=== PATIENT | male | born 1970 | race Asian ===

== ENCOUNTER 2020-09-11 22:04 | Inpatient (IN) | payer BC ==
[~2020-09-11] VITALS: Ht 182.9 cm; Wt 93.0 kg
--- NOTE | 2020-09-11 22:25 | NUR ---
PATIENT BIBSELF C/O MIDSTERNAL CHEST PAIN FOR THE PASSED 20 MINS YACHT CAPTAIN. PATIENT IS A/O X 4, RR EVEN AND UNLABORED, NO SIGNS OF SOB NOTED. PATIENT IS CONNECTED TO CULTURAL HISTORIAN AND POX.
[2020-09-11 22:47] LABS: BASOPHILS % (AUTO) 0.6 % (0.0-2.0); EOSINOPHILS % (AUTO) 2.9 % (0.0-6.0); HEMATOCRIT 42 % (39-51); HEMOGLOBIN 14.7 g/dL (13.5-17.5); LYMPHOCYTES # (AUTO) 3.5 K/uL (0.8-4.8); MEAN CORPUSCULAR HGB CONC 35 g/dl (31.0-36.0); MEAN CORPUSCULAR VOLUME 93 fL (80-96); MONOCYTES # (AUTO) 0.8 K/uL (0.1-1.30); MONOCYTES % (AUTO) 9.8 % (2.0-12.0); NEUTROPHILS % (AUTO) 46.7 % (43.0-81.0); PLATELET COUNT (AUTO) 280 K/uL (150-450); RED BLOOD CELL COUNT(AUTO) 4.53 MIL/uL (4.5-6.0); WHITE BLOOD COUNT (AUTO) 8.7 K/uL (4.3-11.0)
[2020-09-11 23:06] LABS: CALCIUM, SERUM 8.8 mg/dL (8.5-10.1); CARBON DIOXIDE 31 mmol/L (21-32); CHLORIDE 106 mmol/L (98-107); CREATININE 1.3 mg/dL (0.6-1.3); GLUCOSE 175 mg/dL (74-106); POTASSIUM 3.8 mmol/L (3.5-5.1); SODIUM SERUM 142 mmol/L (136-145); UREA NITROGEN, BLOOD 25 mg/dL (7-18)
--- NOTE | 2020-09-11 23:45 | NUR ---
COVID SWAB COLLECTED AND SENT TO LAB
[2020-09-12] VITALS (25 sets, daily range): BP systolic 111–127; BP diastolic 65–89
[2020-09-12] MEDS ORDERED: AMIODARONE 150 MG/3 ML VIAL IV ONE ×2 (00:08→00:30)
[2020-09-12] MEDS ORDERED: NITROGLYCERIN 0.4 MG/TAB BOTTLE ONE (00:23)
[2020-09-12] MEDS ORDERED: ENOXAPARIN SODIUM 100 MG/ML DISP.SYRIN SQ ONE (00:23)
[2020-09-12] MEDS ORDERED: ASPIRIN 81 MG TAB.CHEW ONE (00:26)
[2020-09-12] MEDS ORDERED: ASPIRIN 81 MG TAB.CHEW PO ONE (00:30)
[2020-09-12] MEDS ORDERED: NITROGLYCERIN 0.4 MG/TAB BOTTLE SL ONE (00:30)
[2020-09-12] MEDS ORDERED: ENOXAPARIN SODIUM 80 MG/0.8 ML DISP.SYRIN SQ ONE (00:30)
--- NOTE | 2020-09-12 00:37 | NUR ---
PATIENT GIVEN SECOND DOSE OF NITRO SL 0.4MG, BP: 136/89, HR 83
--- NOTE | 2020-09-12 02:08 | NUR ---
REPORT GIVEN TO LIDIA FLORES
--- NOTE | 2020-09-12 02:18 | NUR ---
PATIENT TRANSFERRED UNDER ACLS
--- NOTE | 2020-09-12 02:20 | NUR ---
RN ADMITTING NOTE PATIENT TRANSFERRED TO TELE RM 324-1. PATIENT IS A/O X 4. ABLE TO MAKE NEEDS KNOWN. PATIENT TOLERATES ROOM AIR, BREATHING EVEN AND UNLABORED WITH O2 SAT OF 97%. TELE MONITOR READS SINUS ARRHYTHMIA 65 WITH FIRST DEGREE AVB AND PVCS. PATIENT IS AMBULATORY WITH STEADY GAIT. PATIENT COMPLAINS ON CHEST PAIN 2/10 PAIN, HE WAS GIVEN 2 DOSES OF NITROSTAT 0.4 MG IN ER WHICH IMPROVED THE PAIN. PATIENT DOES NOT COMPLAIN OF ANY DIZZINESS, N/V. PATIENT'S SKIN IS INTACT. ORIENTED PATIENT TO THE ROOM, PRIMARY NURSE, AND WHEEL INSTALLER. RIGHT AC 20 G PATENT AND INTACT. BELONGINGS INVENTORIED. SAFETY MEASURES IN PLACE: BED IN LOCKED AND IN LOWEST POSITION, CALL LIGHT WITHIN REACH, SIDE RAILS UP. WILL MONITOR PATIENT CLOSELY.
[2020-09-12] MEDS ORDERED: IV D5/ 0.9% NACL 1,000 ML IV SCH (02:30)
[2020-09-12] MEDS ORDERED: ZOLPIDEM TARTRATE 5 MG TABLET PO PRN (02:30)
--- NOTE | 2020-09-12 07:01 | NUR ---
PATIENT COMPLAINING OF CHEST PAIN 4/10, SMOKY AND SHARP PAIN. PATIENT GIVEN 2L OF OXYGEN VIA NC, AND CALLED DR. RED FOR AN ORDER OF NITROSTAT O.4 MG PRN CHEST PAIN X3 5 MINS APART. TORB AND NEW ORDER CARRIED OUT.
[2020-09-12 07:16] LABS: BASOPHILS % (AUTO) 0.1 % (0.0-2.0); HEMATOCRIT 41 % (39-51); LYMPHOCYTES # (AUTO) 0.8 K/uL (0.8-4.8); MEAN CORPUSCULAR HGB CONC 35 g/dl (31.0-36.0); MEAN CORPUSCULAR VOLUME 92 fL (80-96); MONOCYTES # (AUTO) 0.7 K/uL (0.1-1.30); MONOCYTES % (AUTO) 5.4 % (2.0-12.0); NEUTROPHILS # (AUTO) 11.8 K/uL (1.8-8.9); NEUTROPHILS % (AUTO) 88.5 % (43.0-81.0); PLATELET COUNT (AUTO) 271 K/uL (150-450); WHITE BLOOD COUNT (AUTO) 13.4 K/uL (4.3-11.0)
--- NOTE | 2020-09-12 07:25 | NUR ---
RN CLOSING NOTE PATIENT IS STABLE AT THIS TIME. NITROSTAT GIVEN, CHEST PAIN IMPROVED AFTER ONE DOSE. TOLERATING 2 L OF OXYGEN SUPPLEMENTATION. ALL ORDERS CARRIED OUT, ALL NEEDS MET AND ATTENDED. PATIENT'S TELE READING IS SINUS SUDEEP 56 BP WITH PVC. SAFETY MEASURES MAINTAINED. ENDORSED TO DAY SHIFT NURSE FOR PAO.
[2020-09-12] MEDS ORDERED: NITROGLYCERIN 0.4 MG/TAB BOTTLE SL PRN (07:30)
[2020-09-12 07:39] LABS: CALCIUM, SERUM 8.7 mg/dL (8.5-10.1)
[2020-09-12 07:55] LABS: THYROID STIMULATING HORMONE 1.161 uIU/mL (0.358-3.74)
--- NOTE | 2020-09-12 07:58 | NUR ---
MUD CLEANER OPERATOR OPENING NOTES RECEIVED PATIENT IN BED, AWAKE, A/O X4. PATIENT ON ROOM AIR; BREATHING EVEN AND UNLABORED; NO SOB AT THIS TIME. TELE MONITOR WITH A READING OF SR 79 WITH ARRHYTHMIA. NO COMPLAINS OF PAIN AT THIS MOMENT. RAC IV ACCESS G #20 PRESENT AND INTACT INFUSING NS @ 75 MLS/HR. SAFETY PRECAUTIONS IN PLACE; BED IN LOW POSITION AND LOCKED, RAILS UP X2, CALL LIGHT WITHIN REACH. WILL CONTINUE TO MONITOR PATIENT.
[2020-09-12] MEDS: ASPIRIN EC 81 MG TABLET.DR PO SCH (08:20)
[2020-09-12 08:42] LABS: CHOLESTEROL 199 mg/dL (<200); HDL CHOLESTEROL 36 mg/dL (40-60); LDL 119 mg/dL (0-99); TRIGLYCERIDES 217 mg/dL (30-150)
--- NOTE | 2020-09-12 08:45 | NUR ---
REAL ESTATE SERVICES COORDINATOR NOTES LAB CALLED WITH A CRITICAL LAB RESULT FOR TROPONIN OF [phone] MD ON THE FLOOR (DR RED) AND MADE AWARE. MD SPOKE WITH THE PATIENT AND WILL ORDER ANGIOGRAM. PATIENT NPO WILL CONTINUE TO MONITOR
[2020-09-12] MEDS ORDERED: METOPROLOL TARTRATE 25 MG TABLET PO SCH (09:00)
[2020-09-12] MEDS: METOPROLOL TARTRATE 25 MG TABLET PO SCH ×2 (09:30→20:43)
[2020-09-12] MEDS: ENOXAPARIN SODIUM 100 MG/ML DISP.SYRIN SQ SCH ×2 (10:00→20:42)
[2020-09-12] MEDS: NITROGLYCERIN 30 GM TUBE TP SCH ×3 (11:18→17:14)
--- NOTE | 2020-09-12 11:52 | NUR ---
SUPERVISOR ROLLER PRINTINGFORESTRY SUPERVISOR NOTES PATIENT TRANSFERRED TO ICU FOR FURTHER MONITORING AND PROCEDURE. REPORT GIVEN TO RN.
--- NOTE | 2020-09-12 11:53 | NUR ---
RN NOTES RECEIVED PT FROM 3W , A/Ox4, ON TELE SB WITH OCCASIONAL PVC/ SINUS ARRHYTHMIA , HR IN 50'S , ON RA, NO SOB NOTED, O2 SAT WNL, PT STATE HIS CHEST PAIN IS 1-2 OUT OF 10, PT GOING TO TRUCK JUMPER TODAY PER DR GRANDA , D5NS AT 75CC/HR RUNNING , VIA R AC IV SITE, SR UP x3, CALL LIGHT WITHIN EASY REACH, BED LOCKED AND IN LOWEST POSITION, CONTINUE PAIN MANAGEMENT AND NOTIFY MD OF ANY SIGNIFICANT CHANGES.
[2020-09-12] MEDS ORDERED: ENOXAPARIN SODIUM 100 MG/ML DISP.SYRIN SQ SCH (12:00)
--- NOTE | 2020-09-12 12:24 | NUR ---
RN NOTES DR JESUS ALBERTO BAXTER REGARDING TROPONIN 18.897, CONTINUE TO MONITOR . NO NEW ORDER GIVEN .
[2020-09-12] MEDS ORDERED: IV NS 0.9% 1,000 ML ONE (13:40)
[2020-09-12] MEDS ORDERED: IODIXANOL 150 ML IV ONE (13:41)
[2020-09-12] MEDS ORDERED: LIDOCAINE HCL/MPF 1% 30 ML VIAL IJ ONE (13:41)
[2020-09-12] MEDS ORDERED: IV SET PRIMARY PUMP SET 1 EA INFUS.SET MC ONE (13:42)
[2020-09-12] MEDS ORDERED: NTG 50 MG/D5W250 ML BOTTL 250 ML IV PRN (14:00)
--- NOTE | 2020-09-12 14:00 | NUR ---
RN NOTES PT TO IT INSTRUCTOR AT THIS TIME.
[2020-09-12] MEDS ORDERED: NITROGLYCERIN IN 5 % DEXTROSE 250 ML IV ONE (14:23)
[2020-09-12] MEDS ORDERED: MIDAZOLAM HCL 2 MG/2ML VIAL ONE (14:29)
[2020-09-12] MEDS ORDERED: FENTANYL PF 100MCG/2ML AMPUL ONE (14:29)
[2020-09-12] MEDS ORDERED: HEPARIN SODIUM, PORCINE 1,000 UNIT/ML VIAL ONE (14:55)
[2020-09-12] MEDS ORDERED: HEPARIN SODIUM, PORCINE 5000 UNITS/1 ML VIAL ONE ×2 (14:55→15:23)
[2020-09-12] MEDS ORDERED: IODIXANOL 320MG/ML 50 ML IV ONE (14:57)
[2020-09-12] MEDS ORDERED: TIROFIBAN-0.9% SODIUM CHLORIDE 100 ML IV ONE (15:27)
[2020-09-12] MEDS ORDERED: SODIUM CHLORIDE IV PRN (16:00)
[2020-09-12] MEDS ORDERED: TIROFIBAN IV PRN (16:00)
[2020-09-12] MEDS ORDERED: ENOXAPARIN SODIUM 80 MG/0.8 ML DISP.SYRIN SQ SCH (16:00)
--- NOTE | 2020-09-12 16:20 | NUR ---
RN NOTES RECEIVED PT FROM SOIL ANALYST , PT IS A/Ox4, ON 2L O2 N/C , O2 SAT WNL, ON TELE SB HR IN 50'S, TR BAND COMPRESSION DEVICE ON AND ALIGNED WITH GREEN MARKER, BALLOON 14 INFLATED ON RIGHT WRIST , SITE CLEAN, DRY AND NO SIGN OF BLEEDING AND HEMATOMA NOTED , PT IS ABLE TO MOVE HIS FINGERS , DENIES ANY NUMBNESS AND TINGLING, STRONG POSITIVE RIGHT RADIAL PULSED NOTED ON PALPATION , SR UP x3 , CALL LIGHT WITHIN EASY REACH, BED LOCKED AND IN LOWEST POSITION, CONTINUE TO MONITOR.
--- NOTE | 2020-09-12 16:20 | NUR ---
RN NOTES AGGRASTAT RUNNING AT 16.5 CC/HR VIA LEFT AC IV SITE G 18, NO SIGN OF BLEEDING NOTED
[2020-09-12] MEDS: SODIUM CHLORIDE IV PRN (16:54)
[2020-09-12] MEDS: TIROFIBAN IV PRN (16:54)
[2020-09-12] MEDS: [UNRECOGNIZED DRUG - OTHER] IV PRN (16:54)
[2020-09-12] MEDS: IV NS 0.9% 1,000 ML IV SCH (18:08)
--- NOTE | 2020-09-12 18:20 | NUR ---
RN NOTES 6 CC OF 14CC AIR REMOVED FROM TR BAND , SMALL AMOUNT OF BLEEDING NOTED AT THE SITE, 2CC AIR PUSHED BACK IN , NO NUMBNESS AND TINGLING NOTED ON R HANDS FINGERS , PT RAHEL ANY CHEST PAIN, AGGRASTAT AT 16.5CC/HR RUNNING, NS AT 100CC/HR INFUSING, WILL ENDOSE TO ACCOUNTING SYSTEM EXPERT NURSE FOR CONTINUITY OF CARE .
--- NOTE | 2020-09-12 18:30 | NUR ---
RN NOTES SMALL AREA OF GRAYISH COLOR NOTED AT THE TR BAND SITE , AREA SOFT TO TOUCH , DR RAY NOTIFIED , CONTINUE TO MONITOR PER MD ORDER .
--- NOTE | 2020-09-12 19:35 | NUR ---
RN NOTES RECEIVED PATIENT AWAKE ALERT ORIENTED X 4 WATCHING TV ON BED. HAD CARDIAC CATH THIS AFTERNOON WITH TR BAND ON RIGHT HAND WITH 9 CC OF AIR LEFT, AND WILL CONTINUE TO REMOVE EVERY 15 MINS. UNTIL AIR COMPLETELY REMOVE. REMOVED 2 CC OF AIR AT THIS TIME. DENIES CHEST PAIN. WITH GOOD RADIAL PULSE. DENIES TINGLING OR NUMBNESS. GRAYISH COLOR ON THE SITE PRESENT MD MADE AWARE BY PREV. SHIFT. AND WILL CONTINUE TO MONITOR.
--- NOTE | 2020-09-12 19:45 | NUR ---
RN NOTES PATIENT ALSO RUNNING NS @ 100 ML/HR UNTIL 10 PM ONLY AND AGGRASTAT @ 16.5 ML/HR TFO. TR BAND ON RIGHT HAND CONTINUE TO MONITOR FOR SIGNIFICANT BLEEDING.
--- NOTE | 2020-09-12 21:00 | NUR ---
RN NOTES REMOVED TR BAND ON RIGHT HAND, NO BLEEDING AND COVERED WITH TRANSPARENT DRESSING . PT IS AWAKE DENIES CHEST PAIN, ABLE TO MOVE HIS FINGERS , DENIES ANY NUMBNESS AND TINGLING, WITH STRONG RIGHT RADIAL PULSE.
[2020-09-12] MEDS: ATORVASTATIN 40 MG TABLET PO SCH (21:02)
[2020-09-12] MEDS ORDERED: ATORVASTATIN 40 MG TABLET PO SCH (22:00)
[2020-09-13] VITALS (38 sets, daily range): BP systolic 104–133; BP diastolic 59–88
--- NOTE | 2020-09-13 | NUR ---
RN NOTES PATIENT ASLEEP AT THIS TIME SB ON MONITOR. NO SOB OR ACUTE RESPIRATORY DISTRESS ON ROOM AIR. SATURATION >92%, AFEBRILE. VSS. NO BLEEDING NOTED FROM RIGHT HAND FROM S/P TR BAND REMOVED. NO TINGLING OR NUMBNESS, SOFT TO TOUCH. NO SIGNIFICANT CHANGES NOTED.
[2020-09-13 05:30] LABS: BASOPHILS % (AUTO) 0.2 % (0.0-2.0); EOSINOPHILS % (AUTO) 0.2 % (0.0-6.0); HEMATOCRIT 39 % (39-51); HEMOGLOBIN 13.5 g/dL (13.5-17.5); LYMPHOCYTES # (AUTO) 2.4 K/uL (0.8-4.8); LYMPHOCYTES % (AUTO) 18.9 % (20.0-44.0); MEAN CORPUSCULAR HGB CONC 35 g/dl (31.0-36.0); MEAN CORPUSCULAR VOLUME 93 fL (80-96); MONOCYTES # (AUTO) 1.1 K/uL (0.1-1.30); MONOCYTES % (AUTO) 8.8 % (2.0-12.0); NEUTROPHILS # (AUTO) 9.3 K/uL (1.8-8.9); NEUTROPHILS % (AUTO) 71.9 % (43.0-81.0); PLATELET COUNT (AUTO) 246 K/uL (150-450); RED BLOOD CELL COUNT(AUTO) 4.18 MIL/uL (4.5-6.0)
[2020-09-13 05:31] LABS: CALCIUM, SERUM 8.3 mg/dL (8.5-10.1); MAGNESIUM 1.9 mg/dL (1.8-2.4); POTASSIUM 4.1 mmol/L (3.5-5.1)
--- NOTE | 2020-09-13 07:00 | NUR ---
RN NOTES RECEIVED PT ON BED,A/Ox4, ON RA, NO SOB NOTED, PT RAHEL CHEST PAIN ON TELE SR , HR IN 70'S , RAC IV SITE G 20 AND L AC IV SITE G 18 , CLEAN, DRY AND INTACT, R WRIST SITE , SOFT TO TOUCH , DRESSING CLEAN, DRY AND INTACT, NO SIGN OF COMPLICATION NOTED, CONTINUE TO MONITOR .
--- NOTE | 2020-09-13 07:00 | NUR ---
RN NOTES AGGRASTAT AT 16.5 CC/HR INFUSING .
--- NOTE | 2020-09-13 07:00 | NUR ---
RN NOTES PATIENT ASLEEP WELL, NO ACTIVE BLEEDING FROM S/P TR BAND PRESENT, TRANSPARENT DRESSING KEPT INTACT. DENIES NUMBNESS AND TINGLING ON THE SITE ABLE TO MOVE FINGERS WITHOUT SIGNIFICANT CHANGES. PATIENT WOKE UP CHEST PAIN. AWARE ABOUT PLAN OF CARE. ENDORSED CONTINUITY OF CARE TO AM NURSE.
[2020-09-13] MEDS: IV NS 0.9% 1,000 ML IV SCH ×2 (07:01→17:45)
[2020-09-13] MEDS: [UNRECOGNIZED DRUG - OTHER] IV PRN ×2 (07:09→22:10)
[2020-09-13] MEDS: SODIUM CHLORIDE IV PRN ×2 (07:09→22:10)
[2020-09-13] MEDS: TIROFIBAN IV PRN ×2 (07:09→22:10)
[2020-09-13] MEDS: ENOXAPARIN SODIUM 100 MG/ML DISP.SYRIN SQ SCH ×2 (08:28→21:44)
[2020-09-13] MEDS: ASPIRIN EC 81 MG TABLET.DR PO SCH (08:28)
[2020-09-13] MEDS: NITROGLYCERIN 30 GM TUBE TP SCH ×3 (08:32→16:35)
[2020-09-13] MEDS: METOPROLOL TARTRATE 25 MG TABLET PO SCH ×2 (08:32→21:43)
--- NOTE | 2020-09-13 10:29 | NUR ---
RN NOTES DR GRANDA NOTIFIED REGARDING TROPONIN 76.684.
--- NOTE | 2020-09-13 12:00 | NUR ---
RN NOTES PT RAHEL CHEST PAIN . NO DISTRESS NOTED, CONTINUE TO MONITOR .
--- NOTE | 2020-09-13 18:00 | NUR ---
RN NOTES PT RESTING IN BED, RAHEL CHEST PAIN ,VSS STABLE , NO SIGNIFICANT CHANGES NOTED ON THIS SHIFT . WILL ENDORSE TO SUPERVISOR COAL HANDLING NURSE FOR CONTINUITY OF CARE .
--- NOTE | 2020-09-13 19:20 | NUR ---
RN NOTES RECEIVED PATIENT AWAKE ON BED. AOX 4. BREATHING EVEN AND UNLABORED ON ROOM AIR SR ON MONITOR. AFEBRILE. VSS. DENIES PAIN. NO SIGNS OF BLEEDING FROM THE PUNCTURE SITE ON RIGHT HAND. IV SITE ON RAC G 20 AND LAC G 18 INTACT AND PATENT RUNNING AGGRASTAT 16.5 ML/HR AND NS @ 100 ML/HR. ALL IV SITE INTACT AND PATENT. KEPT PT CLEAN AND DRY. PATIENT IS AWARE REGARDING UPCOMING CARDIAC CATH TOMORROW.
[2020-09-13] MEDS: ATORVASTATIN 40 MG TABLET PO SCH (21:43)
[2020-09-13] MEDS: ACETAMINOPHEN 325 MG TABLET PO PRN (22:21)
[2020-09-14] VITALS (36 sets, daily range): BP systolic 97–137; BP diastolic 46–93
--- NOTE | 2020-09-14 | NUR ---
RN NOTES INFORMED PATIENT THAT THE SCHEDULE PROCEDURE WILL START AT 07:30 IN THE MORNING. NPO POST MIDNIGHT. AGGRASTAT AND IVF ONGOING.
[2020-09-14] MEDS: IV NS 0.9% 1,000 ML IV SCH ×2 (04:20→18:00)
[2020-09-14] MEDS ORDERED: IODIXANOL 150 ML IV ONE (06:37)
[2020-09-14] MEDS ORDERED: IV NS 0.9% 1,000 ML ONE (06:37)
[2020-09-14] MEDS ORDERED: IODIXANOL 320MG/ML 50 ML IV ONE (06:38)
[2020-09-14] MEDS ORDERED: NITROGLYCERIN IN 5 % DEXTROSE 250 ML IV ONE (06:38)
[2020-09-14] MEDS ORDERED: LIDOCAINE HCL/MPF 1% 30 ML VIAL IJ ONE (06:38)
--- NOTE | 2020-09-14 07:00 | NUR ---
RN NOTES PATIENT CASE FITTER FOR ANGIOGRAM AT THIS TIME, V/S STABLE, A/O X4.
--- NOTE | 2020-09-14 07:03 | NUR ---
RN NOTES PICKED UP BY OR STAFF FOR CARDIAC CATH IN STABLE CONDITION, SEEN BY DR. GRANDA AT BED SIDE.
[2020-09-14] MEDS ORDERED: MIDAZOLAM HCL 2 MG/2ML VIAL ONE (07:36)
[2020-09-14] MEDS ORDERED: FENTANYL PF 100MCG/2ML AMPUL ONE (07:36)
[2020-09-14] MEDS ORDERED: ADENOSINE 6 MG/2 ML VIAL ONE (07:44)
[2020-09-14] MEDS ORDERED: IV NS 0.9% 500 ML IV ONE (07:44)
[2020-09-14] MEDS ORDERED: HEPARIN SODIUM, PORCINE 1,000 UNIT/ML VIAL ONE ×2 (07:50→08:32)
[2020-09-14] MEDS ORDERED: HEPARIN SODIUM, PORCINE 5000 UNITS/1 ML VIAL ONE (07:50)
[2020-09-14] MEDS ORDERED: TICAGRELOR 90 MG TABLET PO ONE (07:52)
[2020-09-14] MEDS ORDERED: NS 0.9% IV ONE (08:30)
[2020-09-14] MEDS ORDERED: ALTEPLASE CATHFLO IV ONE (08:30)
[2020-09-14] MEDS: ENOXAPARIN SODIUM 100 MG/ML DISP.SYRIN SQ SCH (09:00)
[2020-09-14] MEDS: ASPIRIN EC 81 MG TABLET.DR PO SCH (09:00)
[2020-09-14] MEDS ORDERED: IODIXANOL 320MG/ML 100 ML IV ONE (09:11)
--- NOTE | 2020-09-14 10:30 | NUR ---
RN NOTES PATIENT BACK FROM SURGERY AT THIS TIME AWAKE, A/O X4, WAS COMPLAINING OF HEADACHE 2/10 PER PAIN SCALE. PATIENT HAS POST UP TR BAND. ORDER IS TR BAND X2HR, REMOVE 3-5 ML OF AIR Q 15MINS, UNTIL AIR COMPLETELY REMOVED. START REMOVING AIR IS AFTER 1 HR. ALSO PATIENT HAS NEW MEDICATION BRILINTA 90MG BID , AND ASA 81 ORDERS WILL START 09/15/20. CONTINUED POST UP MONITORING. PATIENT HAS FULL PULSE ON RIGHT REDIAL, NO BLEEDING NOTED, WARM TO TOUCH, GOOD CIRCULATION, PATIENT WAS COMPLAINING OF MILD NUMBNESS ON FINGERS, BUT ABLE TO MOVE FINGERS FREELY, COLOR IS PINK. DUE MEDICATION ADMINISTERED, VSS, KEEP RIGHT ARM ELEVATED USING PILLOW. PATIENT USING URINAL. CALL LIGHT WITHIN TO REACH. WILL MONITORING CLOSELY.
[2020-09-14] MEDS: METOPROLOL TARTRATE 25 MG TABLET PO SCH ×2 (11:03→21:00)
[2020-09-14] MEDS: NITROGLYCERIN 30 GM TUBE TP SCH ×2 (11:04→18:00)
--- NOTE | 2020-09-14 11:40 | NUR ---
RN NOTES REMOVED 2 ML OF AIR AT THIS TIME, PULSE IS PRESENT, SKIN WARM TO TOUCH, PATIENT ABLE TO REMOVE FINGERS FREELY. REFUSED PAIN. WILL MONITORING.
--- NOTE | 2020-09-14 12:05 | NUR ---
RN NOTES REMOVED 2ML OF AIR NOW, PATIENT TOLERATED LUNCH WELL, PULSE IS PRESENT, SKIN WARM TO TOUCH. NO PAIN, ABLE TO MOVE FINGERS FREELY . WILL MONITORING.
--- NOTE | 2020-09-14 12:20 | NUR ---
rn notes removed air from tr bans is 3ml, , pulse is Present, no bleeding, vss, patient refused pain. next to the bed.
--- NOTE | 2020-09-14 12:35 | NUR ---
rn notes REMOVED AIR FROM TR BANS IS -2ML 1250- 2ML 1305 2ML 1320-2 ML, PATIENT REFUSED PAIN , BP 127/60, P-69, R-20, O2-98 ROOM AIR. PATIENT REFUSED PAIN, NO BLEEDING, PULSE IS PRESENT, SKIN WARM TO TOUCH. WILL REMOVE TR BAND WITHIN AN HOUR . PATIENT TOLERATED LUNCH WELL.
--- NOTE | 2020-09-14 13:20 | NUR ---
RN NOTES REMOVED LAST 2 ML OF AIR AT THIS TIME, PULSE IS PRESENT, COLOR POINT , WARM TO TOUCH, NO BLEEDING, NO PAIN, BP-127/75, P-69,PATIENT ROOM AIR O2-95%. INFUSING NS AT 100 ML/HR ON LEFT AC AREA INTACT. WILL MONITORING.
--- NOTE | 2020-09-14 14:30 | NUR ---
RN NOTES REMOVED TR BAND AT THIS TIME, APPLIED TRANSPARENT DRESSING, PATIENT SKIN WARM TO TOUCH, PULSE IS PRESENT, PATIENT REFUSED PAIN, NO BLEEDING. PATIENT VSS. KEEP MONITORING.
--- NOTE | 2020-09-14 18:30 | NUR ---
RN NOTES PATIENT STABLE BP 97/60, P-66, R-12, O2-96 ROOM AIR. DRESSING INTACT ON RIGHT ARM, NO BLEEDING NOTES, PULSE IS PRESENT, PATIENT REFUSED PAIN, DUE MEDICATION ADMINISTERED. PATIENT TOLERATED DINNER WELL. INFUSING NS AT 100 ML ON LEFT AC AREA INTACT. PATIENT USING URINAL. CALL LIGHT WITHIN TO REACH. ENDORSED ONCOMING NURSE FOLLOW PLAN OF CARE.
--- NOTE | 2020-09-14 19:05 | NUR ---
RECEIVED PT ON BED AWAKE WATCHING TV ON ROOM AIR NO SIGN OF RESPIRATORY DISTRESS, NO CHEST PAIN COMPLAINT AT THIS TIME, TELE MONITOR READS SINUS RHYTHM 60'S HAVE RAC# 20 AND LAC#18 WITH ONGOIGN NS @ 100ML/HR INFUSING WELL, PT IS ABLE TO USE URINAL, CTA WRIST BAND ALREADY TAKE OFF ON RIGHT WRIST WITH TRANSPARENT DRESSING NO SIGN OF BLEEDING NOTED,ABLE TO EAT AND DRINK, BED ON LOWEST POSITION AND LOCKED SIDE RAILS UP X2 CALL LIGHT WITHIN REACH WILL CONT TO MONITOR
--- NOTE | 2020-09-14 19:56 | NUR ---
TRANSFUSION OF FFP STARTED WITH DIALYSIS, V/S CHECKED AND RECORDED NO BLOOD TRANSFUSION REACTION NOTED Addendum: 09/14/20 at 2009 by ERNIE CM RN WRONG PT DISREGARD NOTES
[2020-09-14] MEDS: ACETAMINOPHEN 325 MG TABLET PO PRN (21:23)
[2020-09-14] MEDS: ATORVASTATIN 40 MG TABLET PO SCH (21:24)
[2020-09-15] VITALS (19 sets, daily range): BP systolic 96–131; BP diastolic 58–88
[2020-09-15] MEDS: IV NS 0.9% 1,000 ML IV SCH (01:01)
--- NOTE | 2020-09-15 04:28 | NUR ---
PT ON BED AWAKE , NOT ON RESPIRATORY DISTRESS, CHECKED THE RIGHT ARM WHERE TR BAND WAS REMOVED, THE CLEAR DRESSING IS INTACT NO BLEEING NOTED, PERIPHERAL PULSE IS STRONG, PT IS ABLE TO MOVE ALL OF HIS FINGER IN RIGHT HAND WITH NO DIFFICULTY, NO CHEST PAIN COMPLAINED AT THIS TIME, WILL CONT TO MONITOR
[2020-09-15 04:39] LABS: BASOPHILS % (AUTO) 0.3 % (0.0-2.0); EOSINOPHILS % (AUTO) 1.1 % (0.0-6.0); HEMATOCRIT 34 % (39-51); HEMOGLOBIN 12.1 g/dL (13.5-17.5); LYMPHOCYTES # (AUTO) 1.7 K/uL (0.8-4.8); LYMPHOCYTES % (AUTO) 18.6 % (20.0-44.0); MEAN CORPUSCULAR HGB CONC 36 g/dl (31.0-36.0); MEAN CORPUSCULAR VOLUME 92 fL (80-96); MONOCYTES % (AUTO) 10.2 % (2.0-12.0); NEUTROPHILS # (AUTO) 6.5 K/uL (1.8-8.9); NEUTROPHILS % (AUTO) 69.8 % (43.0-81.0); PLATELET COUNT (AUTO) 214 K/uL (150-450); RED BLOOD CELL COUNT(AUTO) 3.66 MIL/uL (4.5-6.0); WHITE BLOOD COUNT (AUTO) 9.4 K/uL (4.3-11.0)
[2020-09-15 04:52] LABS: CALCIUM, SERUM 7.9 mg/dL (8.5-10.1); POTASSIUM 3.6 mmol/L (3.5-5.1)
--- NOTE | 2020-09-15 07:00 | NUR ---
PT ON BED AWAKE AA/O X4 ON ROOM AIR TOLERATING WELL NO SIGN OF RESPIRATORY DISTRESS, NO CHEST PAIN COMPLAINED, TELE MONITOR READS SINUS RHYTHM 60-70, NO SIGNIFICANT CHANGES ON CONDITION NOTED ALL NEEDS ATTENDED, WILL ENDORSED TO AM SHIFT NURSE
--- NOTE | 2020-09-15 07:50 | NUR ---
RN OPENING NOTE RECD PT IN BED. A/O X4. PT IS ON ROOM AIR TOLERATING WELL, SPO2 IS 95% AT THIS TIME, NO DISTRESS NOTED. NO SOB. PT DENIES PAIN. PT PRESENTS WITH NSR WITH HEART RATE OF 75. PT USES URINAL. LEFT AC LEAKING, REMOVED WITH CATHETER INTACT. PRESSURE AND GAUZE APPLIED FOR 1MIN NO S/S OF BLEEDING NOTED. RAC IV LINE INTACT, PATENT. SAFETY MEASURES IN PLACE HOB ELEVATED. SIDE RAILS UP X2 BED LOCKED IN LOWEST POSITION WITH ALARM ON, CALL LIGHT WITHIN REACH.
[2020-09-15] MEDS: ASPIRIN EC 81 MG TABLET.DR PO SCH (08:30)
[2020-09-15] MEDS: METOPROLOL TARTRATE 25 MG TABLET PO SCH (08:31)
[2020-09-15] MEDS ORDERED: TICAGRELOR 90 MG TABLET PO SCH (09:00)
--- NOTE | 2020-09-15 09:00 | NUR ---
RN NOTE PT TO BE DISCHARGED, INFORMED PT. REPORT GIVEN TO LUIS ALBERTO FOR CONTINUATION OF CARE. TO BE TRANSFERRED TO TELE.
--- NOTE | 2020-09-15 09:19 | NUR ---
MS RAIL SWITCHMAN NOTES RECEIVED TRANSFER FROM ICU. PATIENT MEDICALLY STABLE. WILL CONTINUE TO MONITOR.
[2020-09-15] MEDS ORDERED: ATOR40TA PO (09:45)
[2020-09-15] MEDS ORDERED: TICA90TA PO (09:45)
[2020-09-15] MEDS ORDERED: ASPI-1420 PO (09:45)
[2020-09-15] MEDS: ACETAMINOPHEN 325 MG TABLET PO PRN (11:18)
--- NOTE | 2020-09-15 12:38 | NUR ---
MS RN NOTES NOTED PATIENT'S RIGHT ARM LOOKING A BIT MORE BRUISED AND SWOLLEN. REMOVED THE IV FROM R ARM AND APPLIED SOME ICE. ELEVATED THE ARM ON THE PILLOW. DR. RED (PRIMARY) NOTIFIED. PER MD NO OTHER ORDERS/ACTIONS REQUIRED.
--- NOTE | 2020-09-15 13:40 | NUR ---
MS ELECTRONIC INTELLIGENCE OFFICER NOTES PATIENT DISCHARGED HOME IN MEDICALLY STABLE CONDITION. PATIENT A/O X4 ABLE TO MAKE NEEDS KNOWN. ALL DISCHARGE PAPERWORK READY; TEACHING PROVIDED TO PATIENT REGARDING PHYSICIAN INSTRUCTIONS, F/U APPOINTMENTS AND MEDICATIONS. PATIENT VERBALIZED UNDERSTANDING. BELONGINGS ACCOUNTED FOR AND FORM SIGNED WELL. SKIN INTACT. IV ACCESS REMOVED WITH THE WRISTBAND BEFORE LEAVING THE UNIT. PATIENT PICKED UP BY HIS AND LEFT THE FLOOR ACCOMPANIED BY RN AT [id number]. LEFT THE HOSPITAL IN A PRIVATE CAR.
== END 2020-09-15 13:37 | disposition home or self-care (01) | DRG 247 ==
LOC: ER 22:10 → TELE 09-12 01:50 → ICU 09-12 11:53 → MEDSG1 09-15 09:18
PROVIDERS: ADMIT Internal Medicine; ATTEND Internal Medicine
PROC: 02703ZZ Dilation of Coronary Artery, One Artery, Percutaneous Approach (ICD-10-PCS; principal; 2020-09-12)
PROC: 4A023N7 Measurement of Cardiac Sampling and Pressure, Left Heart, Percutaneous Approach (ICD-10-PCS; 2020-09-12)
PROC: B211YZZ Fluoroscopy of Multiple Coronary Arteries using Other Contrast (ICD-10-PCS; 2020-09-12)
PROC: 02C03ZZ Extirpation of Matter from Coronary Artery, One Artery, Percutaneous Approach (ICD-10-PCS; 2020-09-12)
PROC: 027035Z Dilation of Coronary Artery, One Artery with Two Drug-eluting Intraluminal Devices, Percutaneous Approach (ICD-10-PCS; 2020-09-14)
PROC: 4A023N7 Measurement of Cardiac Sampling and Pressure, Left Heart, Percutaneous Approach (ICD-10-PCS; 2020-09-14)
PROC: B211YZZ Fluoroscopy of Multiple Coronary Arteries using Other Contrast (ICD-10-PCS; 2020-09-14)
PROC: 3E07317 Introduction of Other Thrombolytic into Coronary Artery, Percutaneous Approach (ICD-10-PCS; 2020-09-14)
DX: I21.19 ST elevation (STEMI) myocardial infarction involving other coronary artery of inferior wall (principal); D68.69 Other thrombophilia; E78.5 Hyperlipidemia, unspecified; Z20.822 Contact with and (suspected) exposure to COVID-19
CPT/HCPCS: 36415; 71045-TC; 80048-TC; 80061-TC; 83735-TC; 84443-TC; 84484-TC; 85025-TC; 85610-TC; 87081-TC; 92980; 92981; 93307-TC; A4216; C1725; C1757; C1769; C1887; C9803; G0378; G0500; J0153; J0282; J1644; J1650; J2250; J2997; J3010; J3490; J7030; J7040; J7042; Q9967